=== PATIENT | male | born 1955 ===

== ENCOUNTER 2021-07-30 12:15 | Inpatient (IN) | payer OTHER ==
[~2021-07-30] VITALS: Ht 185.4 cm; Wt 90.7 kg
[2021-08-03] MEDS ORDERED: ATORVASTATIN CA20 MG (09:03)
[2021-08-05] MEDS ORDERED: INTESTINEX680 M1 PO (11:18)
[2021-08-05] MEDS ORDERED: HYOSCYAMINE0.125 M1 SL (11:18)
[2021-08-05] MEDS ORDERED: ULTRAM50 MG PO (11:19)
[2021-08-05] MEDS ORDERED: ORPHENADRINE C100 MG PO (11:19)
== END 2021-08-05 13:53 | disposition home or self-care (01) | DRG 331 ==
LOC: O/R 08-02 06:50 → SURG 08-02 10:57 → SURH 08-02 11:00
PROVIDERS: ADMIT Surgery; ATTEND Surgery
PROC: 07TC4ZZ Resection of Pelvis Lymphatic, Percutaneous Endoscopic Approach (ICD-10-PCS; 2021-08-02)
PROC: 0DJD8ZZ Inspection of Lower Intestinal Tract, Via Natural or Artificial Opening Endoscopic (ICD-10-PCS; 2021-08-02)
PROC: 0DTE4ZZ Resection of Large Intestine, Percutaneous Endoscopic Approach (ICD-10-PCS; principal; 2021-08-02 11:00)
DX: C19 Malignant neoplasm of rectosigmoid junction (principal); Z20.822 Contact with and (suspected) exposure to COVID-19